=== PATIENT | male | born 1965 | race Caucasian/White ===

== ENCOUNTER 2017-10-14 19:55 | Emergency (ER) | payer MEDICARE, OTHER ==
[~2017-10-14] VITALS: Ht 188 cm; Wt 100.0 kg
[~2017-10-14 19:55] MED LIST: BENZ2TAB10 PO; GABA-529 PO; OMEP10SU2 PO; QUET100T PO; QUET300T2 PO
[2017-10-14 21:54] VITALS: BP 134/89
== END 2017-10-14 21:56 | disposition home or self-care (01) ==
LOC: EMS 19:56
DX: M25.512 Pain in left shoulder (principal); Z79.899 Other long term (current) drug therapy; W18.2XXA Fall in (into) shower or empty bathtub, initial encounter; Y93.E1 Activity, personal bathing and showering; Y92.89 Other specified places as the place of occurrence of the external cause; Y99.8 Other external cause status
CPT/HCPCS: 99284

== ENCOUNTER 2017-12-14 16:01 | Inpatient (IN) | payer MEDICARE, MEDICAID ==
[~2017-12-14] VITALS: Ht 195.6 cm; Wt 88.5 kg
[2017-12-14] MEDS ORDERED: DiphenhydrAMINE HCL 50 MG/ML VIAL IM ONE (16:45)
[2017-12-14] MEDS ORDERED: LORazepam 2 MG/ML VIAL IM ONE (16:45)
[2017-12-14] MEDS ORDERED: HALOPERIDOL LACTATE 5 MG/ML VIAL IM ONE (16:45)
[2017-12-14 16:50] LABS: BASOPHILS % (AUTO) 0.7 % (0.0-2.0); HEMOGLOBIN 15.4 g/dL (13.5-17.5); LYMPHOCYTES # (AUTO) 1.3 K/uL (1.0-4.8); LYMPHOCYTES % (AUTO) 19.7 % (22.0-44.0); MEAN CORPUSCULAR HEMOGLOBIN 31.1 pg (26.0-34.0); MEAN CORPUSCULAR HGB CONC 34.3 G/dL (31.0-37.0); MEAN CORPUSCULAR VOLUME 91 fL (80-100); MONOCYTES # (AUTO) 0.7 K/uL (0.1-1.0); MONOCYTES % (AUTO) 10.4 % (2.0-9.0); NEUTROPHILS # (AUTO) 4.3 K/uL (1.8-7.7); NEUTROPHILS % (AUTO) 67.2 % (40.0-70.0); PLATELET COUNT (AUTO) 196 K/uL (150-450); RED BLOOD CELL COUNT(AUTO) 4.96 MIL/uL (4.50-5.90); RED CELL DISTRIBUTION WIDTH 14.1 % (11.5-14.5)
[2017-12-14 17:00] LABS: ANION GAP 17 mmol/L (8-16); CALCIUM, TOTAL 9.4 mg/dL (8.8-10.5); CARBON DIOXIDE 20 mmol/L (22-29); CHLORIDE 102 mmol/L (98-107); CREATININE 1.29 mg/dL (0.60-1.30); GLOMERULAR FILTR. RATE CALC 58 mL/min (>60); GLUCOSE,RANDOM 110 mg/dL (70-110); POTASSIUM 3.5 mmol/L (3.5-5.1); SODIUM SERUM 139 mmol/L (136-145); UREA NITROGEN, BLOOD 6 mg/dL (7-18)
[2017-12-14 17:06] LABS: ALANINE AMINOTRANSFERASE 16 U/L (12-78); ALBUMIN 4.3 g/dL (3.4-5.0); ALKALINE PHOSPHATASE 101 U/L (46-116); ASPARTATE AMINOTRANSFERASE 12 U/L (15-37); BILIRUBIN,TOTAL 0.4 mg/dL (0.1-1.0); TOTAL PROTEIN, SERUM 8.2 g/dL (6.4-8.2)
[2017-12-14] MEDS ORDERED: NYSTATIN 30 GM CREAM TP ONE (20:00)
[2017-12-14] MEDS ORDERED: POTASSIUM CHLORIDE 20 MEQ ER TABLET PO ONE (20:00)
[2017-12-14 20:20] LABS: CHOLESTEROL 209 mg/dL (131-200); HDL CHOLESTEROL 30 mg/dL (40-60); LDL CHOL (CALC.) 156 mg/dL (0-130); TRIGLYCERIDES 116 mg/dL (15-150)
[2017-12-14] MEDS: BENZTROPINE MESYLATE 2 MG TABLET PO SCH (20:29)
[2017-12-14] MEDS: QUEtiapine FUMARATE 300 MG TABLET PO SCH (20:29)
[2017-12-15] MEDS: QUEtiapine FUMARATE 100 MG TABLET PO SCH (08:56)
[2017-12-15] MEDS: BENZTROPINE MESYLATE 2 MG TABLET PO SCH ×2 (08:56→21:10)
[2017-12-15] MEDS: HALOPERIDOL 5 MG TABLET PO PRN (17:02)
[2017-12-15] MEDS: LORazepam 2 MG TABLET PO PRN (17:02)
[2017-12-15] MEDS: QUEtiapine FUMARATE 300 MG TABLET PO SCH (21:00)
[2017-12-16 01:05] VITALS: BP 106/80
[2017-12-16] MEDS ORDERED: LOPERAMIDE HCL 2 MG CAPSULE PO PRN (06:30)
[2017-12-16] MEDS ORDERED: DOCUSATE SODIUM 100 MG CAPSULE PO PRN (06:30)
[2017-12-16] MEDS ORDERED: PETROLATUM,WHITE 71 GM JELLY TP PRN (06:30)
[2017-12-16] MEDS ORDERED: ONDANSETRON HCL 4 MG TABLET PO PRN (06:30)
[2017-12-16] MEDS ORDERED: MAGNESIUM HYDROXIDE SUSPENSION 30 ML UDCUP PO PRN (06:30)
[2017-12-16] MEDS ORDERED: GuaiFENesin/D-METHORPHAN [SUGAR-FREE] 200-20MG/10 ML SYRUP UDCUP PO PRN (06:30)
[2017-12-16] MEDS ORDERED: ACETAMINOPHEN 325 MG TABLET PO PRN (06:30)
[2017-12-16] MEDS ORDERED: MAG HYDROX/AL HYDROX/SIMETH ES 30 ML SUSPENSION UDCUP PO PRN (06:30)
[2017-12-16] MEDS ORDERED: ALBUTEROL SULFATE HFA 90 MCG/PUFF 8 GM INHALER IH PRN (06:30)
[2017-12-16 08:58] VITALS: BP 123/80
[2017-12-16] MEDS: HALOPERIDOL 5 MG TABLET PO PRN (09:26)
[2017-12-16] MEDS: QUEtiapine FUMARATE 100 MG TABLET PO SCH ×2 (09:27→17:00)
[2017-12-16] MEDS: LORazepam 2 MG TABLET PO PRN ×2 (09:27→17:00)
[2017-12-16] MEDS: RisperiDONE 2 MG TABLET PO SCH ×2 (10:45→17:00)
[2017-12-16] MEDS: DIVALPROEX SODIUM 500 MG ER TABLET PO SCH ×2 (11:04→17:00)
[2017-12-16 16:42] VITALS: BP 122/82
[2017-12-16] MEDS: BENZTROPINE MESYLATE 2 MG TABLET PO SCH (16:59)
[2017-12-16] MEDS: QUEtiapine FUMARATE 300 MG TABLET PO SCH (20:42)
[2017-12-17 05:42] VITALS: BP 105/78
[2017-12-17 08:00] VITALS: BP 140/85
[2017-12-17] MEDS: DIVALPROEX SODIUM 500 MG ER TABLET PO SCH ×2 (08:32→16:20)
[2017-12-17] MEDS: QUEtiapine FUMARATE 100 MG TABLET PO SCH ×2 (08:32→16:21)
[2017-12-17] MEDS: RisperiDONE 2 MG TABLET PO SCH ×2 (08:32→16:20)
[2017-12-17] MEDS: LORazepam 2 MG TABLET PO PRN ×2 (08:32→16:21)
[2017-12-17] MEDS: BENZTROPINE MESYLATE 2 MG TABLET PO SCH ×2 (08:32→16:20)
[2017-12-17 16:00] VITALS: BP 137/86
[2017-12-17] MEDS: QUEtiapine FUMARATE 300 MG TABLET PO SCH (20:33)
[2017-12-18 06:30] VITALS: BP 128/88
[2017-12-18 08:18] VITALS: BP 123/87
[2017-12-18] MEDS: HALOPERIDOL 5 MG TABLET PO PRN ×2 (08:22→16:49)
[2017-12-18] MEDS: DIVALPROEX SODIUM 500 MG ER TABLET PO SCH ×2 (08:22→16:47)
[2017-12-18] MEDS: BENZTROPINE MESYLATE 2 MG TABLET PO SCH ×2 (08:22→16:47)
[2017-12-18] MEDS: QUEtiapine FUMARATE 100 MG TABLET PO SCH ×2 (08:22→16:49)
[2017-12-18] MEDS: RisperiDONE 2 MG TABLET PO SCH ×2 (08:22→16:47)
[2017-12-18] MEDS: IBUPROFEN 400 MG TABLET PO PRN (12:55)
[2017-12-18] MEDS: LORazepam 2 MG TABLET PO PRN (16:49)
[2017-12-18 17:04] VITALS: BP 124/81
[2017-12-18] MEDS: ZOLPIDEM TARTRATE 10 MG TABLET PO PRN (20:54)
[2017-12-18] MEDS: QUEtiapine FUMARATE 300 MG TABLET PO SCH (20:54)
[2017-12-19 05:46] VITALS: BP 131/78
[2017-12-19 08:00] VITALS: BP 118/76
[2017-12-19] MEDS: DIVALPROEX SODIUM 500 MG ER TABLET PO SCH ×2 (08:51→16:36)
[2017-12-19] MEDS: RisperiDONE 2 MG TABLET PO SCH ×2 (08:51→16:37)
[2017-12-19] MEDS: QUEtiapine FUMARATE 100 MG TABLET PO SCH ×2 (08:51→16:37)
[2017-12-19] MEDS: BENZTROPINE MESYLATE 2 MG TABLET PO SCH ×2 (08:51→16:36)
[2017-12-19 09:57] VITALS: BP 115/77
[2017-12-19] MEDS: IBUPROFEN 400 MG TABLET PO PRN (09:59)
[2017-12-19 10:57] VITALS: BP 112/78
[2017-12-19] MEDS: LORazepam 2 MG TABLET PO PRN ×2 (11:15→16:37)
[2017-12-19] MEDS: DENTURE ADHESIVE 68 GM CREAM DT PRN (12:32)
[2017-12-19 16:00] VITALS: BP 121/76
[2017-12-19] MEDS: HALOPERIDOL 5 MG TABLET PO PRN (16:37)
[2017-12-19] MEDS: ZOLPIDEM TARTRATE 10 MG TABLET PO PRN (20:12)
[2017-12-19] MEDS: QUEtiapine FUMARATE 300 MG TABLET PO SCH (20:12)
[2017-12-20 04:45] VITALS: BP 123/75
[2017-12-20 08:28] VITALS: BP 150/72
[2017-12-20] MEDS: BENZTROPINE MESYLATE 2 MG TABLET PO SCH ×2 (08:51→16:52)
[2017-12-20] MEDS: DIVALPROEX SODIUM 500 MG ER TABLET PO SCH ×2 (08:51→16:52)
[2017-12-20] MEDS: LORazepam 2 MG TABLET PO PRN ×2 (08:52→16:52)
[2017-12-20] MEDS: RisperiDONE 2 MG TABLET PO SCH ×2 (08:52→16:54)
[2017-12-20] MEDS: QUEtiapine FUMARATE 100 MG TABLET PO SCH ×2 (08:52→16:52)
[2017-12-20 16:07] VITALS: BP 140/72
[2017-12-20] MEDS: QUEtiapine FUMARATE 300 MG TABLET PO SCH (20:27)
[2017-12-21 01:21] VITALS: BP 137/72
[2017-12-21] MEDS: DENTURE ADHESIVE 68 GM CREAM DT PRN (07:13)
[2017-12-21 08:07] VITALS: BP 128/92
[2017-12-21] MEDS: RisperiDONE 2 MG TABLET PO SCH (08:47)
[2017-12-21] MEDS: BENZTROPINE MESYLATE 2 MG TABLET PO SCH (08:47)
[2017-12-21] MEDS: QUEtiapine FUMARATE 100 MG TABLET PO SCH (08:48)
[2017-12-21] MEDS: DIVALPROEX SODIUM 500 MG ER TABLET PO SCH (08:48)
[2017-12-21] MEDS ORDERED: RISP2 PO (09:23)
[2017-12-21] MEDS ORDERED: QUET100T PO (09:24)
[2017-12-21] MEDS ORDERED: QUET300T2 PO (09:24)
[2017-12-21] MEDS ORDERED: BENZ2TAB10 PO (09:25)
[2017-12-21] MEDS ORDERED: DIVA500T52 PO (09:25)
== END 2017-12-21 11:34 | disposition home or self-care (01) | DRG 885 ==
LOC: EMS 16:01 → UNDOADMIN 12-15 19:01 → B2S 12-15 19:01 → B3A 12-15 19:01
PROVIDERS: ADMIT Psychiatry & Neurology Child & Adolescent Psychiatry; ATTEND Psychiatry & Neurology Child & Adolescent Psychiatry
DX: F25.0 Schizoaffective disorder, bipolar type (principal); E78.5 Hyperlipidemia, unspecified; F10.10 Alcohol abuse, uncomplicated; G40.909 Epilepsy, unspecified, not intractable, without status epilepticus; I10 Essential (primary) hypertension; J45.909 Unspecified asthma, uncomplicated; K21.9 Gastro-esophageal reflux disease without esophagitis; F17.210 Nicotine dependence, cigarettes, uncomplicated; F19.10 Other psychoactive substance abuse, uncomplicated; F63.9 Impulse disorder, unspecified; F41.9 Anxiety disorder, unspecified; G47.00 Insomnia, unspecified; Z78.1 Physical restraint status; Z71.41 Alcohol abuse counseling and surveillance of alcoholic; Z71.51 Drug abuse counseling and surveillance of drug abuser; Z82.5 Family history of asthma and other chronic lower respiratory diseases; Z79.899 Other long term (current) drug therapy
CPT/HCPCS: 96372; 99285; G0480; J1200; J1630; J2060